=== PATIENT | female | born 1995 | race Caucasian/White ===

== ENCOUNTER 2017-07-31 09:23 | Emergency (ER) | payer BC ==
[2017-07-31 10:45] VITALS: BP 126/73
--- NOTE | 2017-07-31 11:13 | UC ---
Throat Pain/Nasal Cale HPI - History of Current Complaint Hx Last Menstrual Period: 07/06/17 Pain Intensity: 3 <Susi Casiano - Last Filed: 07/31/17 11:13> - HPI Summary HPI Summary: 22 yo female c/o last 2-3 days progressive worse sinus congestion, cough, runny nose. + fever. No sob / cp perse. ++ sore throat. No visible or reported rash. Some GI upset. ++ sinus tenderness, hx recurrent sinusitis. - History of Current Complaint Hx Obtained From: Patient <AceMarilee - Last Filed: 07/31/17 11:41> - History of Current Complaint Chief Complaint: UCRespiratory Stated Complaint: FLU SYMPTOMS Time Seen by Provider: 07/31/17 10:41 - Allergies/Home Medications Allergies/Adverse Reactions: Allergies Allergy/AdvReac Type Severity Reaction Status Date / Time No Known Allergies Allergy Verified 07/31/17 10:37 Home Medications: Home Medications Iud 07/31/17 [History] PMH/Surg Hx/FS Hx/Imm Hx - Surgical History Surgical History: Yes Surgery Procedure, Year, and Place: WISDOM TEETH EXTRACTIONS. TUBES EARS - Social History Alcohol Use: Occasionally Substance Use Type: None Smoking Status (MU): Never Smoked Tobacco <Susi Casiano - Last Filed: 07/31/17 11:13> Previously Healthy: Yes - Family History Known Family History: Positive: None <Marilee Bello - Last Filed: 07/31/17 11:41> Review of Systems Constitutional: Fever, Fatigue Skin: Negative Eyes: Negative ENT: Sore Throat, Nasal Discharge, Sinus Congestion, Sinus Pain/Tenderness Respiratory: Negative Cardiovascular: Negative Gastrointestinal: Other - see hpi Genitourinary: Negative Motor: Negative Neurovascular: Negative Musculoskeletal: Myalgia Neurological: Headache - not whol Psychological: Negative Is Patient Immunocompromised?: No All Other Systems Reviewed And Are Negative: Yes <Marilee Bello - Last Filed: 07/31/17 11:41> Physical Exam Vital Signs: Initial Vital Signs Temp 99.6 F 07/31/17 10:38 Pulse 83 07/31/17 10:38 Resp 20 07/31/17 10:38 BP 126/73 07/31/17 10:38 Pulse Ox 99 07/31/17 10:38 <Susi Casiano - Last Filed: 07/31/17 11:13> Triage Information Reviewed: Yes Appearance: Well-Nourished - sitting up. looks tired by NAD. Vital Signs: Initial Vital Signs Temp 99.6 F 07/31/17 10:38 Pulse 83 07/31/17 10:38 Resp 20 07/31/17 10:38 BP 126/73 07/31/17 10:38 Pulse Ox 99 07/31/17 10:38 Vital Signs Reviewed: Yes Eye Exam: Normal - grossly normal ENT: Positive: Nasal congestion, Nasal drainage, TM dull - TM dull au Post pharynx ++ red, no sores or exudates appreciated., Sinus tenderness Neck exam: Normal Neck: Positive: Supple, Nontender Respiratory Exam: Normal - + rhonchorus cough Respiratory: Positive: Chest non-tender, Lungs clear, Normal breath sounds, No respiratory distress, No accessory muscle use Cardiovascular Exam: Normal Cardiovascular: Positive: RRR, No Murmur, Pulses Normal, Brisk Capillary Refill Abdominal Exam: Normal Abdomen Description: Positive: Nontender Bowel Sounds: Positive: Present Musculoskeletal Exam: Normal Neurological Exam: Normal - grossly nonfocal Psychological Exam: Normal - conversing easily and appropriately Skin Exam: Normal - nondiaphoretic. no visible or reported rash <Marilee Bello - Last Filed: 07/31/17 11:41> Throat Pain/Nasal Course/Dx - Course Course Of Treatment: + Influenza "B". RST neg. Reviewed results and coa with MS. Bautista. She reports that she has hx recurrent sinusitis, as such would like rx for sinus abx as well. This certainly is a possibility here. Rx augmentin. Rx diflucan as needed (but will hold off until tamiflu complete). Questions as posed answered to the best of my ability. - Differential Dx/Diagnosis Provider Diagnoses: Influenza B. Sinusitis <Marilee Bello - Last Filed: 07/31/17 11:41> Discharge <Susi Casiano - Last Filed: 07/31/17 11:13> <Marilee Bello - Last Filed: 07/31/17 11:41> - Discharge Plan Condition: Stable Disposition: HOME Prescriptions: Amoxicillin/Clavulanate TAB* [Augmentin TAB 875*] 875 mg PO BID #20 tab Fluconazole [Diflucan 150 MG (NF)] 150 mg PO ONCE #2 tab Oseltamivir CAP* [Tamiflu CAP*] 75 mg PO BID #10 cap Patient Education Materials: Sinusitis (ED), Influenza (ED) Forms: *School Release, *Work Release Referrals: Non Staff,Doctor [Primary Care Provider] - Additional Instructions: Follow up with your primary care provider per routine. Seek medical attention for worse or new problems in the meantime.
== END 2017-07-31 11:40 | disposition home or self-care (01) ==
LOC: UCCORT 09:23
DX: J10.1 Influenza due to other identified influenza virus with other respiratory manifestations (principal); J32.9 Chronic sinusitis, unspecified
CPT/HCPCS: 87502; 87651; 99202; G0463

== ENCOUNTER 2017-08-24 14:42 | Emergency (ER) | payer BC ==
[2017-08-24 15:08] VITALS: BP 113/60
--- NOTE | 2017-08-24 15:16 | UC ---
Respiratory Complaint HPI - HPI Summary HPI Summary: 22 yo female with 10 days of worsening facial pressure and pain upper teeth and gums sensitive R>L low energy no f/c no cp or sob no n/v/d - History of Current Complaint Chief Complaint: UCGeneralIllness Stated Complaint: SINUS COMPLAINT Time Seen by Provider: 08/24/17 15:04 Hx Obtained From: Patient Hx Last Menstrual Period: 08/19/17 Onset/Duration: Gradual Onset, Lasting Days - 10 Timing: Constant Severity Initially: Mild Severity Currently: Moderate Pain Intensity: 3 Pain Scale Used: 0-10 Numeric Aggravating Factors: Nothing Alleviating Factors: Nothing Associated Signs And Symptoms: Positive: Nasal Congestion, Sinus Discomfort Related History: Similar Episode/Dx as: - sinusitis - Allergies/Home Medications Allergies/Adverse Reactions: Allergies Allergy/AdvReac Type Severity Reaction Status Date / Time No Known Allergies Allergy Verified 08/24/17 15:08 Home Medications: Home Medications guaiFENesin ER TAB [Mucinex*] 600 mg PO BID 08/24/17 [History Confirmed 08/24/17 ] PMH/Surg Hx/FS Hx/Imm Hx Previously Healthy: Yes - Surgical History Surgical History: Yes Surgery Procedure, Year, and Place: WISDOM TEETH EXTRACTIONS. TUBES EARS - Family History Known Family History: Positive: Hypertension - Social History Alcohol Use: Occasionally Substance Use Type: None Smoking Status (MU): Never Smoked Tobacco Review of Systems Constitutional: Fatigue Skin: Negative Eyes: Negative ENT: Nasal Discharge, Sinus Congestion, Sinus Pain/Tenderness Respiratory: Negative Cardiovascular: Negative Gastrointestinal: Negative Genitourinary: Negative Motor: Negative Neurovascular: Negative Musculoskeletal: Negative Neurological: Headache Psychological: Negative Is Patient Immunocompromised?: No All Other Systems Reviewed And Are Negative: Yes Physical Exam Triage Information Reviewed: Yes Appearance: Well-Appearing, No Pain Distress, Well-Nourished Vital Signs: Initial Vital Signs Temp 98.8 F 08/24/17 15:04 Pulse 76 08/24/17 15:04 Resp 16 08/24/17 15:04 BP 113/60 08/24/17 15:04 Pulse Ox 100 08/24/17 15:04 Vital Signs Reviewed: Yes Eyes: Positive: Conjunctiva Clear ENT: Positive: Hearing grossly normal, Nasal congestion, Nasal drainage, Sinus tenderness, Uvula midline. Negative: Tonsillar swelling, Tonsillar exudate, Trismus, Muffled voice, Dental tenderness Neck: Positive: Supple, Nontender Respiratory: Positive: Lungs clear, Normal breath sounds, No respiratory distress Cardiovascular: Positive: RRR, No Murmur Musculoskeletal: Positive: ROM Intact, No Edema Neurological: Positive: Alert Psychological Exam: Normal Skin Exam: Normal UC Diagnostic Evaluation - Laboratory O2 Sat by Pulse Oximetry: 100 - normal/not hypoxic Respiratory Course/Dx - Differential Dx/Diagnosis Provider Diagnoses: acute sinusitis Discharge - Sign-Out/Discharge Documenting (check all that apply): Discharge - Discharge Plan Condition: Stable Disposition: HOME Prescriptions: Amoxicillin/Clavulanate TAB* [Augmentin TAB 875*] 875 mg PO BID #20 tab Fluconazole 150 MG (NF) [Diflucan 150 mg (NF)] 150 mg PO ONCE #1 tab Fluticasone NASAL SPRAY 50MCG* [Flonase NASAL SPRAY 50MCG*] 2 spray BOTH NARES DAILY #1 btl Patient Education Materials: Sinusitis (ED), Warm Compress or Soak (ED) Referrals: Non Staff,Doctor [Primary Care Provider] - Additional Instructions: saline nasal spray recheck in 5-7 days if not better - Billing Disposition and Condition Condition: STABLE Disposition: HOME
== END 2017-08-24 15:25 | disposition home or self-care (01) ==
LOC: UCCORT 14:42
DX: J01.90 Acute sinusitis, unspecified (principal)
CPT/HCPCS: 99212; G0463

== ENCOUNTER 2017-08-27 13:47 | Emergency (ER) | payer BC ==
[2017-08-27 14:22] VITALS: BP 109/90
--- NOTE | 2017-08-27 14:41 | UC ---
General HPI - HPI Summary HPI Summary: PT SEEN ON 07/31/17 AND TX FOR A SINUS INFECTION AND THE FLU. SHE GOT BETTER BUT RETURNED ON 08/24/17 AND STARTED TX AGAIN FOR ANOTHER SINUS INFECTION WITH AUGMENTIN. SHE IS ON THE 4TH DAY OF HER AUGMENTIN AND NOTES NOT IMPROVEMENT. PT TAKING MUCINEX, FLONASE AND TESSALON PERLES WELL WITH NO RELIEF. SHE NOTES A HX OF MULTIPLE SINUS INFECTIONS AND HAS AN ENT APPT SCHEDULED FOR 10/22. NO FEVER. + YELLOW DRAINAGE, SINUS PRESSURE AND CONGESTION. SHE NOTES THE FLONASE WON'T GO IN DUE TO CONGESTION. CURRENT S/S'S X 2 WEEKS. - History of Current Complaint Chief Complaint: UCGeneralIllness Stated Complaint: SINUSES RECHECK Time Seen by Provider: 08/27/17 14:10 Hx Obtained From: Patient Hx Last Menstrual Period: 08/19/17 Onset/Duration: Gradual Onset Timing: Constant Pain Intensity: 0 Aggravating: NOTHING Alleviating: NOTHING Associated Signs & Symptoms: Positive: Cough. Negative: Fever, Headache - Allergy/Home Medications Allergies/Adverse Reactions: Allergies Allergy/AdvReac Type Severity Reaction Status Date / Time No Known Allergies Allergy Verified 08/27/17 14:22 PMH/Surg Hx/FS Hx/Imm Hx - Additional Past Medical History Additional PMH: Recurrent sinusitis - Surgical History Surgical History: Yes Surgery Procedure, Year, and Place: WISDOM TEETH EXTRACTIONS. TUBES EARS - Family History Known Family History: Positive: None, Hypertension - Social History Occupation: Student Lives: Dormitory/Roommates Alcohol Use: Occasionally Substance Use Type: None Smoking Status (MU): Never Smoked Tobacco - Immunization History Vaccination Up to Date: Yes Review of Systems Constitutional: Negative Skin: Negative Eyes: Negative ENT: Nasal Discharge, Sinus Congestion, Sinus Pain/Tenderness Respiratory: Cough Cardiovascular: Negative Gastrointestinal: Negative Genitourinary: Negative Motor: Negative Neurovascular: Negative Musculoskeletal: Negative Neurological: Negative Psychological: Negative Is Patient Immunocompromised?: No All Other Systems Reviewed And Are Negative: Yes Physical Exam Triage Information Reviewed: Yes Appearance: Well-Appearing Vital Signs: Initial Vital Signs Temp 98.2 F 08/27/17 14:16 Pulse 70 08/27/17 14:16 Resp 20 08/27/17 14:16 BP 109/90 08/27/17 14:16 Pulse Ox 100 08/27/17 14:16 Eyes: Positive: Conjunctiva Clear ENT: Positive: Pharynx normal, Nasal congestion, Nasal drainage - yellow, TMs normal, Sinus tenderness Neck: Positive: Supple, Nontender, No Lymphadenopathy Respiratory: Positive: Lungs clear, Normal breath sounds Cardiovascular: Positive: RRR, No Murmur Abdomen Description: Positive: Nontender, No Organomegaly, Soft Bowel Sounds: Positive: Present Musculoskeletal: Positive: ROM Intact Neurological: Positive: Alert Psychological: Positive: Age Appropriate Behavior Skin Exam: Normal Course/Dx - Course Course Of Treatment: pt had antibiotic last month. she has been on current antibiotic since the of this month. i think this is to soon to call this an antibiotic failure for a sinus infection and the benefit of changing her to another drug does not outweigh the risk of side effects at this point. since the mucinex, tessalon perles and flonase are not helping, i will d/c those. i will continue the augmentin and add po steroids. pt advised to start a probiotic as well. - Differential Dx - Multi-Symptom Provider Diagnoses: sinusitis Discharge - Sign-Out/Discharge Documenting (check all that apply): Discharge - Discharge Plan Condition: Stable Disposition: HOME Prescriptions: predniSONE TAB* [Deltasone TAB*] 40 mg PO DAILY #10 tab Patient Education Materials: Sinusitis (ED) Referrals: Non Staff,Doctor [Primary Care Provider] - Additional Instructions: FOLLOW UP WITH [facility] IN 5 DAYS FOR A RECHECK OR SOONER IF WORSENING. STOP THE MUCINEX, FLONASE AND TESSALON PERLES. START A PROBIOTIC DAILY. CONTINUE THE AUGMENTIN DIRECTED. - Billing Disposition and Condition Condition: STABLE Disposition: HOME
== END 2017-08-27 14:49 | disposition home or self-care (01) ==
LOC: UCCORT 13:47
DX: Z51.89 Encounter for other specified aftercare (principal); J32.9 Chronic sinusitis, unspecified; Z79.2 Long term (current) use of antibiotics
CPT/HCPCS: 99212; G0463

== ENCOUNTER 2017-08-29 13:16 | Emergency (ER) | payer BC ==
[2017-08-29 14:04] VITALS: BP 126/70
--- NOTE | 2017-08-29 14:11 | UC ---
Respiratory Complaint HPI - HPI Summary HPI Summary: on augmentin and prednisone for a week now but cough more productive and cant stop - not able to sleep much. drinking good, appetite not so good. using inhaler hx asthma. sinus congestion earache also present. denies fever at this time - History of Current Complaint Chief Complaint: UCRespiratory Stated Complaint: COUGH/SINUSES Time Seen by Provider: 08/29/17 13:56 Hx Obtained From: Patient Hx Last Menstrual Period: 08/19/17 Onset/Duration: Lasting Weeks Severity Initially: Moderate Severity Currently: Moderate Pain Intensity: 0 Associated Signs And Symptoms: Positive: Chills, Nasal Congestion - Risk Factors Pulmonary Embolism Risk Factors: Negative Cardiac Risk Factors: Negative Pseudomonas Risk Factors: Negative Tuberculosis Risk Factors: Negative - Allergies/Home Medications Allergies/Adverse Reactions: Allergies Allergy/AdvReac Type Severity Reaction Status Date / Time No Known Allergies Allergy Verified 08/27/17 14:22 Home Medications: Home Medications Albuterol HFA INHALER* [Ventolin HFA Inhaler*] 08/29/17 [History] Guaifenesin/Dextromethorphan [Robitussin Cough-Chest Dm Liq] 08/29/17 [History] PMH/Surg Hx/FS Hx/Imm Hx Previously Healthy: Yes Respiratory History: Asthma - Surgical History Surgical History: Yes Surgery Procedure, Year, and Place: WISDOM TEETH EXTRACTIONS. TUBES EARS - Family History Known Family History: Positive: None, Hypertension - Social History Occupation: Student Alcohol Use: Occasionally Substance Use Type: None Smoking Status (MU): Never Smoked Tobacco - Immunization History Vaccination Up to Date: Yes Review of Systems Constitutional: Chills, Fatigue Skin: Negative Eyes: Negative ENT: Sore Throat, Ear Ache, Nasal Discharge, Sinus Congestion Respiratory: Cough - nonprod Cardiovascular: Negative Gastrointestinal: Negative Genitourinary: Negative Musculoskeletal: Negative Neurological: Negative Psychological: Negative Is Patient Immunocompromised?: No All Other Systems Reviewed And Are Negative: Yes Physical Exam Triage Information Reviewed: Yes Appearance: Ill-Appearing Vital Signs: Initial Vital Signs Temp 99.4 F 08/29/17 13:57 Pulse 63 08/29/17 13:57 Resp 20 08/29/17 13:57 BP 126/70 08/29/17 13:57 Pulse Ox 99 08/29/17 13:57 Vital Signs Reviewed: Yes Eye Exam: Normal ENT: Positive: TM bulging - bilateral Respiratory Exam: Normal Cardiovascular Exam: Normal Abdominal Exam: Normal Musculoskeletal Exam: Normal Neurological Exam: Normal Psychological Exam: Normal Skin Exam: Normal UC Diagnostic Evaluation - Laboratory O2 Sat by Pulse Oximetry: 99 Respiratory Course/Dx - Course Course Of Treatment: continue inhaler as directed. stop augmentin start doxycycline as directed. continue prednisone and finish few days left. increase fluid intake daily to prevent dehydration. ibuprofen or tylenol prn every 4-6 hours as directed on bottle for fever/pain. f/u prn - Differential Dx/Diagnosis Differential Diagnosis/HQI/PQRI: Asthma, Laryngitis Provider Diagnoses: sinusitis Discharge - Sign-Out/Discharge Documenting (check all that apply): Discharge - Discharge Plan Condition: Good Disposition: HOME Prescriptions: Codeine Phosphate/Guaifenesin [Codeine-Guaifen 10-100 mg/5 ml] 5 ml PO BID 5 Days #50 liquid MDD 2 DOXYcycline CAP(*) [DOXYcycline 100MG CAP(*)] 100 mg PO BID 10 Days #20 cap Patient Education Materials: Sinusitis (ED) Referrals: Non Staff,Doctor [Primary Care Provider] - 1 Week (pcp referral) - Billing Disposition and Condition Condition: GOOD Disposition: HOME
== END 2017-08-29 14:29 | disposition home or self-care (01) ==
LOC: UCCORT 13:16
DX: Z79.2 Long term (current) use of antibiotics (principal); J32.9 Chronic sinusitis, unspecified; Z79.52 Long term (current) use of systemic steroids
CPT/HCPCS: 99212; G0463

== ENCOUNTER 2018-05-13 11:47 | Emergency (ER) | payer BC ==
[2018-05-13 12:54] VITALS: BP 144/81
--- NOTE | 2018-05-13 13:25 | UC ---
UC General HPI - HPI Summary HPI Summary: Pt c/o sudden on set of fever, and generalized malaise X 1 day. Also, left upper eye lid mild swelling. - History of Current Complaint Chief Complaint: UCGeneralIllness Stated Complaint: COUGH/TIRED/NAUSEA Time Seen by Provider: 05/13/18 12:50 Hx Obtained From: Patient Hx Last Menstrual Period: last week Onset/Duration: Sudden Onset Onset Severity: Moderate Current Severity: Mild Pain Intensity: 3 Associated Signs & Symptoms: Positive: Fever - Allergy/Home Medications Allergies/Adverse Reactions: Allergies Allergy/AdvReac Type Severity Reaction Status Date / Time No Known Allergies Allergy Verified 05/13/18 12:55 Home Medications: Home Medications Acetaminophen TAB* [Tylenol TAB*] 650 mg PO ONCE PRN 05/13/18 [History Confirmed 05/13/18] PMH/Surg Hx/FS Hx/Imm Hx Previously Healthy: Yes - Surgical History Surgical History: Yes Surgery Procedure, Year, and Place: WISDOM TEETH EXTRACTIONS. TUBES EARS - Family History Known Family History: Positive: Hypertension - Social History Occupation: Student Lives: Dormitory/Roommates Alcohol Use: Occasionally Substance Use Type: None Smoking Status (MU): Never Smoked Tobacco Have You Smoked in the Last Year: No - Immunization History Vaccination Up to Date: Yes Review of Systems All Other Systems Reviewed And Are Negative: Yes Constitutional: Positive: Fever, Fatigue Skin: Positive: Negative Eyes: Positive: Negative ENT: Positive: Negative Respiratory: Positive: Negative Cardiovascular: Positive: Negative Gastrointestinal: Positive: Negative Genitourinary: Positive: Negative Motor: Positive: Negative Neurovascular: Positive: Negative Musculoskeletal: Positive: Negative Neurological: Positive: Negative Psychological: Positive: Negative Is Patient Immunocompromised?: No Physical Exam Triage Information Reviewed: Yes Appearance: Well-Appearing Vital Signs: Initial Vital Signs Temp 98.4 F 05/13/18 12:45 Pulse 75 05/13/18 12:45 Resp 22 05/13/18 12:45 BP 144/81 05/13/18 12:45 Pulse Ox 98 05/13/18 12:45 Vital Signs Reviewed: Yes Eye Exam: Normal ENT Exam: Normal Dental Exam: Normal Neck exam: Normal Respiratory Exam: Normal Cardiovascular Exam: Normal Musculoskeletal Exam: Normal Neurological Exam: Normal Psychological Exam: Normal Skin Exam: Normal Course/Dx - Differential Dx - Multi-Symptom Differential Diagnoses: Other - viral syndrome - Diagnoses Provider Diagnosis: Viral syndrome Discharge - Sign-Out/Discharge Documenting (check all that apply): Patient Departure All imaging exams completed and their final reports reviewed: No Studies - Discharge Plan Condition: Stable Disposition: HOME Patient Education Materials: Viral Syndrome (ED) Referrals: [facility] [Outside] No Primary Care Phys,NOPCP [Primary Care Provider] - - Billing Disposition and Condition Condition: STABLE Disposition: Home
== END 2018-05-13 13:39 | disposition home or self-care (01) ==
LOC: UCCORT 11:47
DX: B34.9 Viral infection, unspecified (principal)
CPT/HCPCS: 99211; G0463